=== PATIENT | male | born 1940 | race Caucasian/White ===

== ENCOUNTER 2017-07-01 04:12 | Emergency (ER) | payer OTHER ==
[~2017-07-01] VITALS: Ht 170.2 cm; Wt 81.1 kg
[~2017-07-01 04:12] MED LIST: ASPI81TA3 PO; LISI-313 PO; NIFE10CA19 PO; NIFE30TA43 PO
[2017-07-01 04:18] VITALS: Ht 170.2 cm; Wt 81.1 kg
[2017-07-01] MEDS ORDERED: METHYLPREDNISOLONE 125 MG INJ IV STA (04:23)
[2017-07-01] MEDS ORDERED: IPRATROPIUM (NEB) 0.5 MG/2.5 ML AMP INH STA (04:23)
[2017-07-01] MEDS ORDERED: ALBUTEROL 0.5% (NEB) 2.5 MG/0.5 ML AMP INH STA (04:23)
[2017-07-01] MEDS ORDERED: ALBUTEROL 0.5% (NEB) 2.5 MG/0.5 ML AMP INH ONE (04:52)
[2017-07-01] MEDS ORDERED: IPRATROPIUM (NEB) 0.5 MG/2.5 ML AMP INH ONE (04:52)
[2017-07-01 05:03] LABS: BASOPHIL # 0.1 10^3/ul (0.0-0.1); EOSINOPHILS # 1.1 10^3/ul (0.0-0.5); EOSINOPHILS % 14.2 % (0.0-7.0); HEMATOCRIT 42.9 % (42.0-52.0); HEMOGLOBIN 14.1 g/dl (14.0-18.0); LYMPHOCYTES # 2.1 10^3/ul (0.8-2.9); LYMPHOCYTES % 26.9 % (15.0-51.0); MEAN CORPUSCULAR HEMOGLOBIN 29.7 pg (29.0-33.0); MEAN CORPUSCULAR HGB CONC 32.9 g/dl (32.0-37.0); MEAN CORPUSCULAR VOLUME 90.5 fl (82.0-101.0); MEAN PLATELET VOLUME 10.2 fl (7.4-10.4); MONOCYTE # 0.9 10^3/ul (0.3-0.9); MONOCYTES % 10.8 % (0.0-11.0); NEUTROPHIL # 3.7 10^3/ul (1.6-7.5); NEUTROPHILS % 46.8 % (39.0-77.0); PLATELET COUNT 303 10^3/UL (140-415); RED BLOOD COUNT 4.74 10^6/ul (4.70-6.10); RED CELL DISTRIBUTION WIDTH 15.5 % (11.5-14.5)
--- NOTE | 2017-07-01 05:21 | RADRPT ---
PROCEDURE: XR Chest. CLINICAL INDICATION: Shortness of breath TECHNIQUE: AP Portable chest. COMPARISON: CR CHEST 09/06/2015; CR CHEST 08/28/2015 FINDINGS: There is artifact over the right apex. The cardiomediastinal silhouette is magnified. The aorta is calcified and tortuous or ectatic. No fo messi consolidation, pleural effusion or pneumothorax is seen. The osseous structures are intact. IMPRESSION: No radiographic evidence of acute cardiopulmonary disease. Atherosclerotic ectatic aorta. Physician [place] Date Time Electronically viewed and signed by Aydin Carroll Physician on 07/01/2017 05:20 CS/
[2017-07-01 05:25] LABS: ALBUMIN 3.4 g/dl (3.3-4.9); ALBUMIN/GLOBULIN RATIO 1.17; BILIRUBIN,INDIRECT 0.3 mg/dl (0-1.1); BILIRUBIN,TOTAL 0.3 mg/dl (0.2-1.3); CALCIUM 9.3 mg/dl (8.4-10.2); CREATININE 0.8 mg/dl (0.61-1.24); POTASSIUM 4.2 mmol/L (3.5-5.1); TOTAL PROTEIN 6.3 g/dl (6.1-8.1)
[2017-07-01 05:26] LABS: INR 1.03; PROTIME 13.5 Sec (12.2-14.2); PT RATIO 1.1
[2017-07-01 05:27] LABS: PARTIAL THROMBOPLASTIN TIME 32.6 Sec (25.0-35.0)
[2017-07-01] MEDS ORDERED: IPRATROPIUM (NEB) 0.5 MG/2.5 ML AMP HHN ONE (05:30)
--- NOTE | 2017-07-01 05:34 | ERD ---
ER Documentation Chief Complaint Chief Complaint SOB with audible wheezing starting tonight HPI 68-year-old male complains of shortness of breath on tonight.. Also complains of mild cough. No chest pain. No other current issues. No fevers no chills. No nausea no vomiting. No diaphoresis. No other current issues. ROS All systems reviewed and are negative except as per history of present illness. Medications Home Meds Reported Medications Nifedipine* (Adalat CC*) 30 Mg Tablet.sa, 30 MG PO DAILY, #30 TAB.SA 01/23/16 Nifedipine* (Procardia*) 10 Mg Capsule, 10 MG PO Q6, CAP 01/23/16 Lisinopril* (Lisinopril*) 5 Mg Tablet, 5 MG PO DAILY, #30 TAB 01/23/16 Aspirin* (Aspirin* Chew) 81 Mg Tab.chew, 81 MG PO DAILY, TAB.CHEW 01/23/16 Allergies Allergies: Coded Allergies: No Known Allergy (Unverified , 09/06/15) PMhx/Soc History of Surgery: No Anesthesia Reaction: No Hx Neurological Disorder: No Hx Respiratory Disorders: No Hx Cardiac Disorders: No Hx Psychiatric Problems: No Hx Miscellaneous Medical Probl: No Hx Alcohol Use: No Hx Substance Use: No Hx Tobacco Use: No Physical Exam Vitals Vital Signs Date Time Temp Pulse Resp B/P Pulse Ox O2 Delivery O2 Flow Rate FiO2 07/01/17 05:16 72 20 92 21 07/01/17 04:18 98.3 72 24 165/86 92 Physical Exam Const: [] Head: Atraumatic Eyes: Normal Conjunctiva ENT: Normal External Ears, Nose and Mouth. Neck: Full range of motion..~ No meningismus. Resp: Scattered wheezes bilaterally Cardio: Regular rate and rhythm, no murmurs Abd: Soft, non tender, non distended. Normal bowel sounds Skin: No petechiae or rashes Back: No midline or flank tenderness Ext: No cyanosis, or edema Neur: Awake and alert Psych: Normal Mood and Affect Results 24 hrs Laboratory Tests Test 07/01/17 04:40 White Blood Count Pending Red Blood Count Pending Hemoglobin Pending Hematocrit Pending Mean Corpuscular Volume Pending Mean Corpuscular Hemoglobin Pending Mean Corpuscular Hemoglobin Concent Pending Red Cell Distribution Width Pending Platelet Count Pending Mean Platelet Volume Pending Prothrombin Time 13.5Sec Prothrombin Time Ratio 1.1 INR International Normalized Ratio 1.03 Activated Partial Thromboplast Time 32.6Sec Current Medications Medications (Trade) Dose Ordered Sig/Bonnie Route PRN Reason Start Time Stop Time Status Last Admin Dose Admin Albuterol (Proventil 0.5% (Neb)) 5 mg ONCE STAT INH 07/01/17 04:23 07/01/17 05:12 DC Ipratropium [place] (Atrovent 0.02% (Neb)) 2 mg ONCE STAT INH 07/01/17 04:23 07/01/17 05:12 DC Methylprednisolone Sodium Succinate (Solu-Medrol) 125 mg ONCE STAT IV 07/01/17 04:23 07/01/17 04:25 DC 07/01/17 04:46 Albuterol (Proventil 0.5% (Neb)) 10 mg ONCE ONCE INH 07/01/17 04:52 07/01/17 04:53 DC 07/01/17 05:16 Ipratropium [place] (Atrovent 0.02% (Neb)) 2 mg ONCE ONCE INH 07/01/17 04:52 07/01/17 05:12 DC Ipratropium [place] (Atrovent 0.02% (Neb)) 1 mg ONCE ONCE HHN 07/01/17 05:30 07/01/17 05:31 DC 07/01/17 05:16 Procedures/MDM EKG: Rate/Rhythm: [Normal Sinus Rhythm] QRS, ST, T-waves: [No changes consistent w/ acute ischemia] Impression: [No evidence of ischemia or arrhythmia] Chest X-ray 1V Interpreted by me: Soft Tissue: No acute abnormalities Bones: No acute abnormalities Mediastinum/Cardiac Silhouette/Lungs: [No acute abnormalities] Patient's respiratory status has stabilized while in the department and is appropriate for outpatient work up. Exam and work up not consistent w/ impending respiratory failure or cardiovascular collapse. Departure Diagnosis: Primary Impression: Bronchitis Condition: Stable KAUR DEL CID Jul 01, 2017 05:34
[2017-07-01] MEDS ORDERED: AZIT250T94 PO (05:35)
[2017-07-01] MEDS ORDERED: ALBU18HF INHALATION (05:35)
[2017-07-01 05:37] LABS: TROPONIN-I 0.015 ng/ml (0.00-0.12)
[2017-07-01 05:59] VITALS: BP 142/82; PULSE 72; RESP 15; TEMP 98.3
== END 2017-07-01 06:33 | disposition home or self-care (01) ==
LOC: E/R 04:12
DX: J20.9 Acute bronchitis, unspecified (principal); Z79.82 Long term (current) use of aspirin
CPT/HCPCS: 36415; 71010; 80053; 83880; 84484; 85025; 85610; 85730; 93005; 94644; 96374; J2930; Z7502; Z7610